=== PATIENT | female | born 1965 | race Caucasian/White ===

== ENCOUNTER 2016-12-05 18:39 | Emergency (ER) | payer BC ==
[~2016-12-05] VITALS: Ht 165.1 cm; Wt 91.6 kg
--- NOTE | 2016-12-05 21:20 | NUR ---
ARRIVAL PT AMBULATED WELL TO ROOM 6. C/O SEVERE ABDOMINAL PAIN. PLACED ON MONITOR AND TRIAGE DONE
[2016-12-05] MEDS ORDERED: NS 1000ML 1,000 ML ONE (21:39)
[2016-12-05] MEDS ORDERED: NS IV STA (21:43)
[2016-12-05] MEDS ORDERED: LOMOTIL PO STA (21:43)
[2016-12-05] MEDS ORDERED: PROTONIX IV IV STA (21:43)
[2016-12-05] MEDS ORDERED: ZOFRAN IV STA (21:43)
--- NOTE | 2016-12-05 21:45 | NUR ---
MEDS NS BOLUS STARTED VIA RAC PIV RUNNING WIDE OPEN. INFUSING WELL WITH NO SIGN OF INFILTRATE OR INFECTION
--- NOTE | 2016-12-05 21:50 | ER.PDOC ---
General Chief Complaint: Abdomen Pain Stated Complaint: N/V/D Time seen by MD: 21:48 Source: patient Exam Limitations: no limitations History of Present Illness Initial Comments Nausea/vomiting/diarrhea since yesterday Severity/Quality: moderate Abdominal Pain Onset Location: Epigastric Associated Symptoms (vomiting): freq vomitng Associated Symptoms (diarrhea): watery Allergies: Coded Allergies: chlorpheniramine (Verified Allergy, Unknown, unknown, 12/05/16) hydrocodone (Verified Allergy, Unknown, unknown, 12/05/16) Vital Signs First Vital Signs Date Time Temp Pulse Resp B/P (MAP) Pulse Ox O2 Delivery O2 Flow Rate FiO2 12/05/16 21:22 98.2 92 20 97 12/05/16 21:26 148/86 (106) Last Vital Signs Date Time Temp Pulse Resp B/P (MAP) Pulse Ox O2 Delivery O2 Flow Rate FiO2 12/05/16 21:26 98.2 92 20 148/86 (106) 97 Past Medical History Medical History: hypertension Surgical History: , hysterectomy, tonsillectomy Social History Smoking: non-smoker Alcohol Use: none Drug Use: none Constitutional: no symptoms reported Respiratory: no symptoms reported Cardiovascular: no symptoms reported Gastrointestinal: see HPI All Other Systems: Reviewed and Negative Physical Exam General Appearance: No Apparent Distress, WD/WN Respiratory: chest non-tender, lungs clear, normal breath sounds, no respiratory distress, no accessory muscle use Cardiovascular: Normal Peripheral Pulses, Regular Rate, Rhythm, No Edema, No Gallop, No JVD, No Murmur Gastrointestinal: Normal Bowel Sounds, No Organomegaly, No Pulsatile Mass, Tenderness (epigastric) Back: Normal Inspection, No CVA Tenderness, No Vertebral Tenderness Extremities: Normal Range of Motion, Non-Tender, Normal Inspection, No Pedal Edema, No Calf Tenderness, Normal Capillary Refill, Pelvis Stable Neurologic/Psychiatric: wagon washer II-XII NML as Tested, No Motor/Sensory Deficits, Alert, Normal Mood/Affect, Oriented x 3 Skin: Normal Color, Warm/Dry Results/Orders Results/Orders Laboratory Tests Test 12/05/16 21:43 White Blood Count 9.7 10^3/uL (4.5-11.0) Red Blood Count 5.15 10^6/uL (4.00-5.20) Hemoglobin 15.4 g/dL (12.0-15.0) Hematocrit 46.9 % (36.0-46.0) Mean Corpuscular Volume 91.1 fL (78-100) Mean Corpuscular Hemoglobin 29.9 pg (26-34) Mean Corpuscular Hemoglobin Concent 32.8 g/dL (33-37) Red Cell Distribution Width 13.9 % (11.5-14.5) Platelet Count 314 10^3/uL (150-400) Mean Platelet Volume 10.8 fL (7.8-11.0) Neutrophils (%) (Auto) 74.2 % (41.0-85.0) Lymphocytes (%) (Auto) 17.6 % (24.0-44.0) Monocytes (%) (Auto) 6.3 % (5.0-12.0) Neutrophils # (Auto) 7.2 10^3/uL (1.8-7.7) Lymphocytes # (Auto) 1.7 10^3/uL (1.0-4.8) Monocytes # (Auto) 0.6 10^3/uL (0.3-0.8) Absolute Immature Granulocyte (auto 0.02 10^3 u/L (0-2) Eosinophils % 1.6 % (0.0-5.0) Basophils % 0.1 % (0.0-0.2) Basophils # 0.0 10^3/uL (0.0-0.1) Eosinophil Count 0.2 10^3/uL (0.0-0.2) Sodium Level 143 mmol/L (132-145) Potassium Level 3.0 mmol/L (3.6-5.2) Chloride Level 105.0 mmol/L (96-109) Carbon Dioxide Level 27.6 mmol/L (20.0-32) Anion Gap 13.4 Blood Urea Nitrogen 14 mg/dL (7-18) Creatinine 0.78 mg/dL (0.59-1.40) Estimated GFR () 93.8 (>/=60) BUN/Creatinine Ratio 17.0 Glucose Level 115 mg/dL (70-110) Calcium Level 8.6 mg/dL (8.4-10.5) Total Bilirubin 0.5 mg/dL (0.2-1.0) Aspartate Amino Transf (AST/SGOT) 16 U/L (0-35) Alanine Aminotransferase (ALT/SGPT) 21 U/L (12-78) Alkaline Phosphatase 133 U/L (50-136) Total Protein 7.6 g/dL (6.4-8.2) Albumin 3.4 g/dL (3.4-5.0) Globulin 4.2 Lipase 80 U/L (114-286) Percent Immature Gran (Cell Imm) 0.20 % (0.00-0.50) Administered Medications Medications (Trade) Dose Ordered Sig/[place] Route PRN Reason Start Time Stop Time Status Last Admin Dose Admin Sodium Chloride 2,749 ml @ 1,200 mls/hr OT STAT IV 12/05/16 21:43 12/06/16 00:00 12/05/16 21:45 Ondansetron HCl (Zofran) 4 mg STAT STAT IV 12/05/16 21:43 12/05/16 21:49 DC 12/05/16 22:15 Diphenoxylate HCl/ Atropine (Lomotil) 1 each STAT STAT PO 12/05/16 21:43 12/05/16 21:49 DC 12/05/16 22:15 Pantoprazole Sodium (Protonix Iv) 40 mg STAT STAT IV 12/05/16 21:43 12/05/16 21:49 DC 12/05/16 22:15 Progress Progress Patient feeling better to go home. EKG/XRAY/CT/US XRAY: abdomen (No acute abnormality) Departure Time of Disposition: 23:11 Disposition: 01 HOME, SELF-CARE Impression: Primary Impression: Gastroenteritis Additional Impression: Dehydration Condition: Improved Referrals: PCP,UNKNOWN (PCP) PRIMARY CARE PROVIDER Additional Instructions: Zofran Lomotil Start feeding with clear liquids and advance diet as tolerated F/U with your PCP in 2-3 days VALDO MASON MD Dec 05, 2016 21:50
[2016-12-05] MEDS ORDERED: PROTONIX IV IV ONE (21:51)
[2016-12-05] MEDS ORDERED: ZOFRAN ONE (21:52)
[2016-12-05] MEDS ORDERED: LOMOTIL ONE (21:52)
--- NOTE | 2016-12-05 21:57 | PCM.EKG ---
[facility] Test Date: 2016-12-05 Test Time: 22:00:24 Pat Name: PARISH RUDOLPH Department: Room: Gender: F [employer] Offbearer: ROBIN : 1965 Requested By: VALDO MASON Order Number: [id number] Reading MD: Valdo MASON Measurements Intervals [place] Rate: 68 P: 41 [place]: 116 QRS: 3 QRSD: 86 T: -5 QT: 432 QTc: 459 Interpretive Statements Normal sinus rhythm Nonspecific ST and T wave abnormality Abnormal ECG No previous ECG available for comparison Electronically Signed On 12-06-2016 6:53:11 CDT by Valdo MASON Please click the below link to view image of tracing.
[2016-12-05 21:58] LABS: BASOPHIL % 0.1 % (0.0-0.2); EOSINOPHIL # 0.2 10^3/uL (0.0-0.2); EOSINOPHIL % 1.6 % (0.0-5.0); HEMOGLOBIN 15.4 g/dL (12.0-15.0); LYMPHOCYTES # 1.7 10^3/uL (1.0-4.8); LYMPHOCYTES % 17.6 % (24.0-44.0); MEAN CELL HGB 29.9 pg (26-34); MEAN CELL HGB CONCENTRATION 32.8 g/dL (33-37); MEAN CORP VOLUME 91.1 fL (78-100); MEAN PLATELET VOLUME 10.8 fL (7.8-11.0); MONOCYTES # 0.6 10^3/uL (0.3-0.8); MONOCYTES % 6.3 % (5.0-12.0); NEUTROPHIL # 7.2 10^3/uL (1.8-7.7); NEUTROPHILS % 74.2 % (41.0-85.0); RED CELL DISTRIBUTION WIDTH 13.9 % (11.5-14.5); WHITE BLOOD CELL 9.7 10^3/uL (4.5-11.0)
[2016-12-05 22:20] LABS: CALCIUM 8.6 mg/dL (8.4-10.5); CARBON DIOXIDE 27.6 mmol/L (20.0-32)
--- NOTE | 2016-12-05 22:24 | DIREP ---
PROCEDURE:XR ABDOMEN 2 VIEWS COMPARISON:None. INDICATIONS:OE.REASON TECHNIQUE:Flat and upright views of the abdomen are provided. FINDINGS: BOWEL GAS PATTERN:Paucity of small bowel gas. No bowel dilatation or wall thickening is identified. CALCIFICATIONS:No significant calcifications are visible. LUNGS/LUNG BASES:The visible lungs appear clear of focal consolidation. No evidence of pleural effusion. BONES:No acute changes. No fracture. No visible bony lesion. OTHER:Cholecystectomy clips. There is a button overlying the right hemipelvis. It is unclear if this is internal or external to the patient. CONCLUSION: 1. There is no evidence of bowel obstruction or free air. Dictated by: Marc Tom M.D. on 12/05/2016 at 10:21 PM
[2016-12-05 23:46] VITALS: BP 148/86
== END 2016-12-05 23:30 | disposition home or self-care (01) ==
LOC: ER 18:39
DX: K52.9 Noninfective gastroenteritis and colitis, unspecified (principal); E86.0 Dehydration; I10 Essential (primary) hypertension; Z88.8 Allergy status to other drugs, medicaments and biological substances
CPT/HCPCS: 36415; 74020; 80053; 83690; 85025; 93005; 96361; 96374; 96375; 99285; C9113; J2405; J7030